=== PATIENT | female | born 1970 | race Hispanic/Latino ===

== ENCOUNTER 2024-05-02 15:02 | Inpatient (IN) | payer OTHER ==
[~2024-05-02 15:02] MED LIST: Iopamidol-370 76% 500 ML MDV (1 ML CHARGE) ONE
[2024-05-02] MEDS ORDERED: Morphine 4 MG/ML VIAL ONE ×2 (16:21→17:03)
[2024-05-02] MEDS ORDERED: Ondansetron PF 4 MG/2 ML Vial ONE (16:21)
[2024-05-02 16:32] LABS: #Basophils 0.04 10x3/uL (0.0-0.2); %Basophils 0.5 % (0.0-1.0); %Eosinophils 2.5 % (0.0-10.0); %Lymphocytes 29.7 % (21.0-51.0); %Monocytes 9.9 % (0.0-10.0); Hematocrit 43.4 % (36.0-47.0); Hemoglobin 14.8 g/dL (12.0-16.0); Mean Corpuscular HGB CONC 34.1 g/dL (32.0-36.0); Mean Corpuscular Hemoglobin 29.8 pg (27.0-31.0); Mean Corpuscular Volume 87.3 fL (78.0-98.0); Mean Platelet Volume 8.9 fL (7.4-10.4); Platelet Count 356 10x3/uL (130-400); Red Blood Cell (RBC) Count 4.97 mill/uL (4.20-5.40)
[2024-05-02 16:49] LABS: ALT (SGPT) 13 U/L (8-55); AST (SGOT) 14 U/L (5-34); Albumin 3.8 g/dL (3.5-5.0); Alkaline Phosphatase 124 U/L (40-110); Anion Gap 16 mmol/L (10-20); BUN (Urea Nitrogen) 7 mg/dL (9.8-20.1); Bilirubin, Total 0.4 mg/dL (0.2-1.2); Calc. Creatinine Clearance 0 mL/min (70-130); Calcium 9.3 mg/dL (7.8-10.44); Carbon Dioxide 21 mmol/L (22-29); Chloride 103 mmol/L (98-107); Estimated GFR 106; Globulin 3.7 g/dL (2.4-3.5); Glucose 91 mg/dL (70-105); Lipase 15 U/L (8-78); Potassium 3.7 mmol/L (3.5-5.1); Protein, Total 7.5 g/dL (6.0-8.3); Sodium 136 mmol/L (136-145)
[2024-05-02] MEDS ORDERED: niCARdipine 25 MG/10 ML SDV ONE ×2 (17:03→19:23)
[2024-05-02 17:27] LABS: Prothrombin Time 12.8 sec (12.0-14.7)
[2024-05-02 17:28] LABS: PTT 29.9 sec (22.9-36.1)
[2024-05-02] MEDS ORDERED: Acetaminophen 325 MG (10.15 ML) UDCUP PO PRN (17:52)
[2024-05-02] MEDS ORDERED: niCARdipine 25 MG in Sodium Chloride 0.9% 250 ML 250 ML IVPB PRN (17:52)
[2024-05-02] MEDS ORDERED: hydrALAZINE 20 MG/ML VIAL SLOW IVP PRN (17:56)
[2024-05-02] MEDS: Acetaminophen 325 MG TAB PO SCH (19:54)
[2024-05-02] MEDS: Famotidine 20 MG TAB PO SCH (19:54)
[2024-05-02] MEDS: Sodium Chloride 0.9% 1,000 ML IV SCH (20:12)
[2024-05-02] MEDS: Morphine 2 MG/ML VIAL SLOW IVP PRN (20:12)
[2024-05-02] MEDS: Labetalol HCl 100 MG/20 ML VIAL ONE (20:29)
[2024-05-02] MEDS: hydrALAZINE 20 MG/ML VIAL SLOW IVP PRN (21:14)
[2024-05-02] MEDS: HYDROcodone/Acetaminophen 5/325 mg Tablet PO PRN (21:14)
[2024-05-02] MEDS: fentaNYL 50 mcg/mL 1 mL Vial SLOW IVP SCH (21:53)
[2024-05-02] MEDS: Baclofen 10 MG TAB PO SCH (21:59)
[2024-05-02] MEDS: Lidocaine 4% Patch TD SCH (21:59)
[2024-05-02] MEDS ORDERED: Transdermal Patch Removal TOP SCH (22:00)
[2024-05-02] MEDS ORDERED: niCARdipine 40MG In NaCl 40 MG/200 ML BAG IVPB SCH (22:30)
[2024-05-02] MEDS: niCARdipine 50 MG, Admixture Fee 1 EACH in Sodium Chloride 0.9% 250 ML 230 ML IV SCH (23:00)
[2024-05-03] MEDS: Calcium Carbonate 500 MG ChewTAB PO PRN (03:55)
[2024-05-03 07:07] LABS: #Basophils 0.03 10x3/uL (0.0-0.2); %Basophils 0.4 % (0.0-1.0); %Eosinophils 2.5 % (0.0-10.0); %Lymphocytes 25.5 % (21.0-51.0); %Monocytes 10.1 % (0.0-10.0); %Neutrophils 61.1 % (42.0-75.0); Hematocrit 39.4 % (36.0-47.0); Hemoglobin 13.2 g/dL (12.0-16.0); Mean Corpuscular HGB CONC 33.5 g/dL (32.0-36.0); Mean Corpuscular Hemoglobin 30.2 pg (27.0-31.0); Mean Corpuscular Volume 90.2 fL (78.0-98.0); Mean Platelet Volume 9.1 fL (7.4-10.4); Platelet Count 332 10x3/uL (130-400); RBC Distribution Width 14.2 % (11.5-14.5); Red Blood Cell (RBC) Count 4.37 mill/uL (4.20-5.40)
[2024-05-03 07:29] LABS: Hemoglobin A1c 5.2 % (4.0-6.0)
[2024-05-03 07:34] LABS: ALT (SGPT) 11 U/L (8-55); AST (SGOT) 14 U/L (5-34); Albumin 3.3 g/dL (3.5-5.0); Alkaline Phosphatase 104 U/L (40-110); Anion Gap 14 mmol/L (10-20); BUN (Urea Nitrogen) 4 mg/dL (9.8-20.1); Bilirubin, Total 0.4 mg/dL (0.2-1.2); Calc. Creatinine Clearance 174 mL/min (70-130); Calcium 8.7 mg/dL (7.8-10.44); Carbon Dioxide 22 mmol/L (22-29); Chloride 103 mmol/L (98-107); Estimated GFR 108; Globulin 3.8 g/dL (2.4-3.5); Glucose 84 mg/dL (70-105); Potassium 3.3 mmol/L (3.5-5.1); Protein, Total 7.1 g/dL (6.0-8.3); Sodium 136 mmol/L (136-145)
[2024-05-03] MEDS: Baclofen 10 MG TAB PO SCH (08:10)
[2024-05-03] MEDS: Amlodipine 5 MG TAB PO SCH (08:10)
[2024-05-03] MEDS: Transdermal Patch Removal TOP SCH (08:15)
[2024-05-03] MEDS: Electrolyte Replacement Protocol 1 EACH FS ONE (08:28)
[2024-05-03] MEDS ORDERED: Electrolyte Replacement Protocol FS PRN (08:30)
[2024-05-03] MEDS: Potassium Chloride 20 MEQ TAB PO SCH (09:00)
[2024-05-03 10:09] VITALS: BMI 37.5
[2024-05-03 14:00] LABS: Potassium 3.7 mmol/L (3.5-5.1)
[2024-05-03] MEDS: Labetalol HCl 100 MG/20 ML VIAL SLOW IVP PRN (14:25)
[2024-05-03] MEDS: hydrALAZINE 25 MG TAB PO SCH (20:02)
[2024-05-03] MEDS: Lidocaine 4% Patch TD SCH (20:02)
[2024-05-03] MEDS ORDERED: hydrALAZINE 10 MG TAB PO SCH (21:00)
[2024-05-04] MEDS: Lisinopril 5 MG TAB PO SCH ×2 (01:56→10:00)
[2024-05-04] MEDS: Ondansetron PF 4 MG/2 ML Vial IVP PRN (03:45)
[2024-05-04] MEDS: fentaNYL 50 mcg/mL 1 mL Vial SLOW IVP PRN (03:46)
[2024-05-04 06:54] LABS: Anion Gap 16 mmol/L (10-20); BUN (Urea Nitrogen) 6 mg/dL (9.8-20.1); Calc. Creatinine Clearance 156 mL/min (70-130); Calcium 9.4 mg/dL (7.8-10.44); Carbon Dioxide 20 mmol/L (22-29); Chloride 105 mmol/L (98-107); Estimated GFR 106; Glucose 97 mg/dL (70-105); Potassium 3.5 mmol/L (3.5-5.1); Sodium 137 mmol/L (136-145)
[2024-05-04] MEDS: Amlodipine 10 MG TAB PO SCH (08:30)
[2024-05-04] MEDS: fentaNYL 50 mcg/hour Patch TD SCH (10:00)
[2024-05-04] MEDS: Potassium Chloride 20 MEQ TAB PO SCH (10:15)
[2024-05-04] MEDS: Acetaminophen 650 MG/20.3 ML UDCUP PO SCH (23:33)
[2024-05-05] MEDS: Gabapentin 300 MG CAP PO SCH (03:09)
[2024-05-05] MEDS: Cyclobenzaprine 10 MG TAB PO SCH (03:57)
[2024-05-05] MEDS: Lisinopril 10 MG TAB PO SCH (08:31)
[2024-05-05] MEDS: Bisacodyl 10 MG SUPP PR SCH (17:09)
[2024-05-06 07:50] LABS: Anion Gap 15 mmol/L (10-20); BUN (Urea Nitrogen) 8 mg/dL (9.8-20.1); Calc. Creatinine Clearance 161 mL/min (70-130); Calcium 9.7 mg/dL (7.8-10.44); Carbon Dioxide 23 mmol/L (22-29); Chloride 100 mmol/L (98-107); Estimated GFR 105; Glucose 87 mg/dL (70-105); Magnesium 1.8 mg/dL (1.6-2.6); Potassium 3.7 mmol/L (3.5-5.1); Sodium 134 mmol/L (136-145)
[2024-05-06 08:33] LABS: Anisocytosis MODERATE=16-30 cells HPF (0-5); Band 3 % (5-11); Eosinophils 3 % (0-10); Large Platelets 3.9 % (0-5); Lymphocytes 29 % (21-51); Macrocytosis SLIGHT = 6-15 cells HPF (0-5); Monocytes 15 % (0-10); Neutrophil 49 % (42-75); Plasma Cells 1 % (0-0); Platelet Adequacy Comment Platelets Normal; RBC Morphology Within Normal Limits
[2024-05-06 09:37] LABS: Hematocrit 43.5 % (36.0-47.0); Hemoglobin 14.5 g/dL (12.0-16.0); Mean Corpuscular HGB CONC 33.3 g/dL (32.0-36.0); Mean Corpuscular Hemoglobin 29.5 pg (27.0-31.0); Mean Corpuscular Volume 88.4 fL (78.0-98.0); Mean Platelet Volume 9.2 fL (7.4-10.4); Platelet Count 327 10x3/uL (130-400); RBC Distribution Width 14.4 % (11.5-14.5); Red Blood Cell (RBC) Count 4.92 mill/uL (4.20-5.40)
[2024-05-06] MEDS: Magnesium 2 GM/50 ML(in water) 2 GM in Premix 1 BAG IVPB SCH (09:47)
[2024-05-06] MEDS: Morphine 4 MG/ML VIAL SLOW IVP PRN (22:20)
[2024-05-07 04:10] VITALS: BMI 39.3
[2024-05-07] MEDS: Metoprolol Tartrate 25 MG TAB PO SCH (09:21)
[2024-05-07 13:56] VITALS: TEMP 98.5
[2024-05-07 13:59] VITALS: BP 156/83
== END 2024-05-07 17:20 | disposition home or self-care (01) | DRG 552 ==
LOC: ERS 15:02 → CCU 17:06 → SJJU 05-05 09:29
PROVIDERS: ADMIT Internal Medicine; ATTEND Internal Medicine
DX: S22.081A Stable burst fracture of T11-T12 vertebra, initial encounter for closed fracture (principal); I16.1 Hypertensive emergency; F32.A Depression, unspecified; M81.0 Age-related osteoporosis without current pathological fracture; M19.90 Unspecified osteoarthritis, unspecified site; M06.9 Rheumatoid arthritis, unspecified; Z90.710 Acquired absence of both cervix and uterus; Z92.3 Personal history of irradiation; Z85.43 Personal history of malignant neoplasm of ovary; Z90.49 Acquired absence of other specified parts of digestive tract; Z80.3 Family history of malignant neoplasm of breast; Z82.49 Family history of ischemic heart disease and other diseases of the circulatory system; F17.210 Nicotine dependence, cigarettes, uncomplicated; W18.30XA Fall on same level, unspecified, initial encounter; I71.43 Infrarenal abdominal aortic aneurysm, without rupture; N93.9 Abnormal uterine and vaginal bleeding, unspecified
CPT/HCPCS: 36415; 70450; 71260; 72100; 72125; 74177; 80048; 80053; 83036; 83690; 83735; 83880; 85025; 85610; 85730; 86850; 86900; 86901; 93005; J0360; J2270; J2272; J2405; J3010; J3475; J7050; Q9967